=== PATIENT | female | born 1955 | race Caucasian/White ===

== ENCOUNTER 2019-11-29 17:00 | Inpatient (IN) | payer MEDICARE, OTHER ==
--- NOTE | 2019-11-29 17:26 | ER Document Report ---
ED Medical Screen (RME) - General Chief Complaint: Abnormal Lab Results Stated Complaint: ABNORMAL LABS Time Seen by Provider: 11/29/19 17:18 Primary Care Provider: KAYLA DOMINGUEZ MD [Primary Care Provider] - Follow up as needed Mode of Arrival: Wheelchair Information source: Patient Notes: 64-year-old female presented to ED for abnormal lab. She states she was getting a procedure done to try to remove kidney stones at [place] and they were doing a follow-up visit on Monday when they velma blood. She states they called her and told her to come to the emergency room immediately because her sodium was extremely low. She states they cannot get foggy yesterday and today. She states she has had very low sodium in the past and they had to treated with salt tablets and sodium chloride. She states she does have history of paraplegia damage to the nerves around the teeth 3 and kidney stones. She states she does have a urostomy she has no gallbladder and no urinary bladder. She states she only has 1 kidney because the other kidney after a botched surgery. I have greeted and performed a rapid initial assessment of this patient. A comprehensive ED assessment and evaluation of the patient, analysis of test results and completion of medical decision making process will be conducted by an additional ED providers. - Related Data Allergies/Adverse Reactions: adhesive tape [Adhesive Tape] Allergy (Unknown, Verified 03/16/12 18:30) latex [Latex] Allergy (Unknown, Verified 03/16/12 18:30) Past Medical History Renal/ Medical History: Reports: Hx Kidney Stones Musculoskeltal Medical History: Reports Hx Musculoskeletal Trauma Traumatic Medical History: Reports: Hx Spine Fracture - T-3 Past Surgical History: Reports: Hx Cholecystectomy, Hx Orthopedic Surgery - SPINE, Hx Urinary Tract Surgery - urostomy, only has one kidney L nephrectomy, Hx Urostomy. Denies: Hx Pacemaker - Immunizations Hx Diphtheria, Pertussis, Tetanus Vaccination: Yes Physical Exam - Vital signs Vitals: Temp Pulse Resp BP Pulse Ox 98.5 F 88 18 92/57 L 97 11/29/19 17:06 11/29/19 17:06 11/29/19 17:06 11/29/19 17:06 11/29/19 17:06 Course - Vital Signs Vital signs: Temp Pulse Resp BP Pulse Ox 98.5 F 88 18 92/57 L 97 11/29/19 17:19 11/29/19 17:06 11/29/19 17:06 11/29/19 17:06 11/29/19 17:06 Doctor's Discharge - Discharge Referrals: KAYLA DOMINGUEZ MD [Primary Care Provider] - Follow up as needed
[2019-11-29 18:05] LABS: ABSOLUTE EOSINOPHILS # (AUTO) 0.1 10^3/uL (0.0-0.6); ABSOLUTE MONOCYTES (AUTO) 0.6 10^3/uL (0.1-1.4); ABSOLUTE NEUT (AUTO) 2.6 10^3/uL (1.7-8.2); BASOPHILS % (AUTO) 0.9 % (0-2); EOSINOPHILS % (AUTO) 3.1 % (0-6); HEMATOCRIT 33.9 % (36.0-47.0); HEMOGLOBIN 11.5 g/dL (12.0-15.5); MEAN CORPUSCULAR HEMOGLOBIN 31.8 pg (27.0-33.4); MEAN CORPUSCULAR VOLUME 94 fl (80-97); MONOCYTES % (AUTO) 13.6 % (3-13); PLATELET COUNT 417 10^3/uL (150-450); RED BLOOD COUNT 3.62 10^6/uL (3.72-5.28); RED CELL DISTRIBUTION WIDTH 14.1 % (11.5-14.0); SEGMENTED NEUTROPHILS % (AUTO) 59.4 % (42-78); TOTAL CELLS COUNTED % (AUTO) 100 %; WHITE BLOOD COUNT 4.3 10^3/uL (4.0-10.5)
[2019-11-29 18:18] LABS: AMORPHOUS SEDIMENT,URINE TRACE /HPF; APPEARANCE,URINE SLIGHTLY-CLOUDY; BILIRUBIN,URINE NEGATIVE (NEGATIVE); COLOR,URINE YELLOW; GLUCOSE, URINE NEGATIVE (NEGATIVE); KETONES,URINE NEGATIVE (NEGATIVE); LEUKOCYTE ESTERASE,URINE LARGE (NEGATIVE); NITRITE,URINE NEGATIVE (NEGATIVE); PROTEIN,URINE NEGATIVE (NEGATIVE); URINE SPECIFIC GRAVITY 1.004
[2019-11-29 18:26] LABS: ALBUMIN 3.1 g/dL (3.5-5.0); ALKALINE PHOSPHATASE 197 U/L (38-126); ANION GAP 8 (5-19); ASPARTATE AMINO TRANSFERASE 15 U/L (14-36); BILIRUBIN,DIRECT 0.3 mg/dL (0.0-0.4); BILIRUBIN,TOTAL 0.5 mg/dL (0.2-1.3); BLOOD UREA NITROGEN 6 mg/dL (7-20); CALCIUM 8.6 mg/dL (8.4-10.2); CARBON DIOXIDE 25 mmol/L (22-30); CHLORIDE 89 mmol/L (98-107); GLUCOSE 96 mg/dL (75-110); POTASSIUM 4.6 mmol/L (3.6-5.0); TOTAL PROTEIN 5.6 g/dL (6.3-8.2)
[2019-11-29] MEDS: NORMAL SALINE 1000 ML 1,000 ML IV PRN (20:42)
--- NOTE | 2019-11-29 21:22 | ER Document Report ---
ED General - General Chief Complaint: Abnormal Lab Results Stated Complaint: ABNORMAL LABS Time Seen by Provider: 11/29/19 17:18 Mode of Arrival: Wheelchair Notes: Patient is a 64-year-old female that comes emergency department for chief complaint of abnormal labs. Patient states that she had a follow-up appointment after she had kidney stone removal at [place], she states that she was called and told that her labs drawn on Monday showed a very low sodium. She states that she has been told to drink 2 to 3 L of fluid daily because of her kidney history, she states she has had hyponatremia twice in the past she has not on salt tablets at home. She is not on a diuretic. Past medical history includes cystectomy with urostomy, left nephrectomy, and kidney stones current smoking, COPD. Patient denies any complaints, denies confusion, pain, vomiting, fever. states she has been acting normally. - Related Data Allergies/Adverse Reactions: adhesive tape [Adhesive Tape] Allergy (Unknown, Verified 03/16/12 18:30) latex [Latex] Allergy (Unknown, Verified 03/16/12 18:30) Past Medical History - General Information source: Patient - Social History Smoking Status: Current Every Day Smoker Frequency of alcohol use: None Drug Abuse: None Lives with: Family Family History: Reviewed & Not Pertinent Renal/ Medical History: Reports: Hx Kidney Stones Musculoskeletal Medical History: Reports Hx Musculoskeletal Trauma Traumatic Medical History: Reports: Hx Spine Fracture - T-3 Past Surgical History: Reports: Hx Cholecystectomy, Hx Orthopedic Surgery - SPINE, Hx Urinary Tract Surgery - urostomy, only has one kidney L nephrectomy, Hx Urostomy. Denies: Hx Pacemaker - Immunizations Hx Diphtheria, Pertussis, Tetanus Vaccination: Yes Hx Pneumococcal Vaccination: 02/14/08 Review of Systems - Review of Systems Constitutional: No symptoms reported EENT: No symptoms reported Cardiovascular: No symptoms reported Respiratory: No symptoms reported Gastrointestinal: No symptoms reported Genitourinary: No symptoms reported Female Genitourinary: No symptoms reported Musculoskeletal: No symptoms reported Skin: No symptoms reported Hematologic/Lymphatic: No symptoms reported Neurological/Psychological: No symptoms reported Physical Exam - Vital signs Vitals: Temp Pulse Resp BP Pulse Ox 98.5 F 88 18 92/57 L 97 11/29/19 17:06 11/29/19 17:06 11/29/19 17:06 11/29/19 17:06 11/29/19 17:06 - Notes Notes: GENERAL: Alert, interacts well. No acute distress. HEAD: Normocephalic, atraumatic. EYES: Pupils equal, round, and reactive to light. Extraocular movements intact. ENT: Oral mucosa moist, tongue midline. Oropharynx unremarkable. Airway patent. NECK: Full range of motion. Supple. Trachea midline. No lymphadenopathy. LUNGS: Decreased breath sounds bilaterally but no overt wheezes, rales, or rhonchi. No respiratory distress. HEART: Regular rate and rhythm. No murmur ABDOMEN: Urostomy bag noted in the right lower abdomen with unremarkable appearing urine. Soft nontender abdomen. Otherwise unremarkable. EXTREMITIES: Moves all 4 extremities spontaneously. No edema, normal radial and dorsalis pedis pulses bilaterally. No cyanosis. BACK: no cervical, thoracic, lumbar midline tenderness. No saddle anesthesia, normal distal neurovascular exam. Moves all extremities in full range of motion. NEUROLOGICAL: Alert and oriented x3. Normal speech. Cranial nerves II through XII grossly intact. Strength 5/5 in all extremities. PSYCH: Normal affect, normal mood. SKIN: Warm, dry, normal turgor. No rashes or lesions noted. Course - Re-evaluation Re-evalutation: Patient appears older than her stated age she is asymptomatic, cooperative, otherwise well-appearing. Initial blood pressure borderline low at 97, this was recycled and is unremarkable. Remaining evaluation is unremarkable. Patient has no confusion, neurological exam is unremarkable. CBC nonspecific, chemistry shows significant hyponatremia at 121.5, remaining chemistry unremarkable. Urinalysis shows some white blood cells and leukocyte esterase but this was taken from her urostomy bag and I feel this is nonspecific. Culture was placed. Patient has been started on slow sodium chloride fluid rate for treatment of hyponatremia. Discussed with patient and , I suspect her hyponatremia secondary to volume overload with persistent hydration for her kidneys. Will discuss with hospitalist for admission. They state understanding and agreement. Discussed with Dr. Browning, hospitalist, patient accepted to medical floor full admission. - Vital Signs Vital signs: Temp Pulse Resp BP Pulse Ox 98.3 F 88 16 107/59 L 97 11/30/19 01:07 11/30/19 02:01 11/30/19 02:01 11/30/19 01:07 11/30/19 02:01 - Laboratory Result Diagrams: 11/29/19 17:45 11/29/19 17:45 Laboratory results interpreted by me: 11/29/19 11/29/19 11/29/19 17:45 17:45 17:45 RBC 3.62 L Hgb 11.5 L Hct 33.9 L RDW 14.1 H [place] % (Auto) 13.6 H Sodium 121.5 L Chloride 89 L BUN 6 L Creatinine 0.50 L Alkaline Phosphatase 197 H Total Protein 5.6 L Albumin 3.1 L Urine Urobilinogen 4.0 H Ur Leukocyte Esterase LARGE H Discharge - Discharge Clinical Impression: Hyponatremia Condition: Stable Disposition: ADMITTED INPATIENT Admitting Provider: Nallely (Hospitalist) Unit Admitted: Medical Floor
[2019-11-29] MEDS ORDERED: LORAZEPAM INJ 2 MG/1 ML VIAL IV PRN (23:53)
[2019-11-29] MEDS ORDERED: MAG HYDROX/AL HYDROX/SIMETH SUSP 30 ML UDCUP PO PRN (23:53)
[2019-11-29] MEDS ORDERED: NICOTINE 21 MG/24 HR PATCH.TD24 TD PRN (23:53)
[2019-11-29] MEDS ORDERED: MAGNESIUM HYDROXIDE SUSP 30 ML UDCUP PO PRN (23:53)
[2019-11-29] MEDS ORDERED: MORPHINE SULFATE 10 MG/ML INJ IV PRN (23:53)
[2019-11-29] MEDS ORDERED: MELATONIN 5 MG TABLET PO PRN (23:53)
[2019-11-29] MEDS ORDERED: GUAIFENESIN SYRP 200 MG/10 ML UDC PO PRN (23:53)
[2019-11-29] MEDS ORDERED: LEVALBUTEROL HCL NEB 0.63 MG/3 ML AMPUL NEB PRN (23:53)
[2019-11-29] MEDS ORDERED: ACETAMINOPHEN 325 MG TABLET PO PRN (23:53)
--- NOTE | 2019-11-30 00:22 | PDOC H&P ---
History of Present Illness Admission Date/PCP: 11/29/19 23:15 KAYLA DOMINGUEZ MD Patient complains of: Hyponatremia History of Present Illness: DILCIA CASTRO is a 64 year old female who presents to the emergency room at the direction of her [facility] urologist's office due to a low sodium on lab work taken on 11/28/2019. She denies any symptoms or signs of hyponatremia and has been feeling well. She recently had nephrolithiasis treated at [facility] and was seen in for her post procedure follow-up appointment yesterday. She admits a prior history of similar episodes of hyponatremia which were treated with salt tablets. She denies use of any diuretic medications and has been drinking 2 to 3 L of water per day as instructed by her urologist to aid in controlling her nephrolithiasis. In the emergency room she was found to have a sodium of 121 and initial therapy with normal saline was given. She was subsequently admitted hospital for further evaluation treatment. 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 Denies: Hemorrhagic CVA, Ischemic CVA, Seizures Endocrine Medical History: Denies: Diabetes Mellitus Type 1, Diabetes Mellitus Type 2, Hyperthyroidism, Hypothyroidism, Obesity Renal/ Medical History: Reports: Nephrolithiasis, Other - Status post left nephrectomy and cystectomy with urostomy Denies: Chronic Kidney Disease Malignancy Medical History: Reports: None GI Medical History: Denies: Cirrhosis, Hepatitis, Peptic Ulcer Disease Musculoskeltal Medical History: Denies: Arthritis, Fibromyalgia Skin Medical History: Denies: Eczema, Psoriasis Psychiatric Medical History: Reports: Tobacco Dependency Denies: Alcohol Dependency, Substance Abuse Traumatic Medical History: Reports: Other - Thoracic spinal injury Hematology: Reports: Anemia Denies: Bleeding Tendencies Infectious Medical History: Reports: None Past Surgical History Past Surgical History: Reports: Cholecystectomy, Orthopedic Surgery - Spinal surgery, Other - Cystectomy, L nephrectomy, urostomy, cystoscopies and nephrolith therpaies Social History Information Source: Patient Lives with: Spouse/Significant other Smoking Status: Current Every Day Smoker Electronic Cigarette use?: No Frequency of Alcohol Use: None Hx Recreational Drug Use: No Drugs: None Hx Prescription Drug Abuse: No - Advance Directive Resuscitation Status: Full Code Surrogate healthcare decision maker:: Jermaine Castro Family History Family History: Malignancy. denies: CAD, DM, Hypertension, Other - Nephrolit hiasis Parental Family History Reviewed: Yes Children Family History Reviewed: No Sibling(s) Family History Reviewed.: No Medication/Allergy Home Medications: Baclofen [Baclofen 20 mg Tablet] 20 mg PO TID 03/16/12 Amitrip HCl/Chlordiazepoxide [Limbitrol Tablet] 1 each PO TID #0 tablet 03/19/12 Cyanocobalamin (Vitamin B-12) [B-12] 1,000 mcg IM [id number] #0 tab.subl 03/19/12 Ciprofloxacin HCl [Proquin Xr] 500 mg PO BID #60 tab.sr.24h 03/28/12 Allergies/Adverse Reactions: adhesive tape [Adhesive Tape] Allergy (Unknown, Verified 03/16/12 18:30) latex [Latex] Allergy (Unknown, Verified 03/16/12 18:30) Review of Systems Constitutional: ABSENT: chills, fever(s) Eyes: ABSENT: visual disturbances, other - Eye pain Ears: ABSENT: hearing changes, other - Ear pain Nose, Mouth, and Throat: ABSENT: headache(s), sore throat Cardiovascular: ABSENT: chest pain, palpitations Respiratory: ABSENT: cough, dyspnea Gastrointestinal: ABSENT: constipation, diarrhea, nausea, vomiting Musculoskeletal: ABSENT: joint swelling, muscle weakness Integumentary: ABSENT: pruritus, rash Neurological: PRESENT: other - Chronic paraplegia. ABSENT: confusion, convulsions, memory loss, syncope Psychiatric: ABSENT: anxiety, depression Endocrine: ABSENT: cold intolerance, heat intolerance Hematologic/Lymphatic: ABSENT: easy bleeding, easy bruising Allergic/Immunologic: ABSENT: seasonal rhinorrhea Physical Exam Vital Signs: Temp Pulse Resp BP Pulse Ox 98.5 F 88 19 92/67 L 95 11/29/19 17:19 11/29/19 17:06 11/29/19 22:00 11/29/19 21:30 11/29/19 22:00 General appearance: PRESENT: no acute distress, cooperative Head exam: PRESENT: atraumatic, normocephalic Eye exam: PRESENT: conjunctiva pink. ABSENT: conjunctival injection, scleral icterus Ear exam: PRESENT: normal external ear exam. ABSENT: bleeding, drainage Mouth exam: PRESENT: dry mucosa, neck supple Neck exam: ABSENT: thyromegaly, tracheal deviation Respiratory exam: PRESENT: clear to auscultation jared, symmetrical, unlabored Cardiovascular exam: PRESENT: RRR. ABSENT: clicks, gallop, rubs Pulses: PRESENT: normal carotid pulses, normal radial pulses Vascular exam: PRESENT: normal capillary refill. ABSENT: pallor GI/Abdominal exam: PRESENT: normal bowel sounds, soft Rectal exam: PRESENT: deferred Extremities exam: ABSENT: joint swelling, pedal edema Musculoskeletal exam: PRESENT: other - Paraplegia noted. ABSENT: dislocation Neurological exam: PRESENT: alert, oriented to person, oriented to place, oriented to time, oriented to situation, CN II-XII grossly intact, motor sensory deficit - Paraplegia with anesthesia at T4 level Psychiatric exam: PRESENT: appropriate affect, normal mood Skin exam: PRESENT: dry, intact, warm. ABSENT: jaundice, rash, urticaria Results Laboratory Results: 11/29/19 17:45 11/29/19 17:45 11/29/19 11/29/19 11/29/19 17:45 17:45 17:45 WBC 4.3 RBC 3.62 L Hgb 11.5 L Hct 33.9 L MCV 94 MCH 31.8 MCHC 34.0 RDW 14.1 H Plt Count 417 Seg Neutrophils % 59.4 Sodium 121.5 L Potassium 4.6 Chloride 89 L Carbon Dioxide 25 Anion Gap 8 BUN 6 L Creatinine 0.50 L Est GFR ( Amer) > 60 Glucose 96 Calcium 8.6 Phosphorus 3.0 Magnesium 2.0 Total Bilirubin 0.5 AST 15 Alkaline Phosphatase 197 H Total Protein 5.6 L Albumin 3.1 L Urine Color YELLOW Urine Appearance SLIGHTLY-CLOUDY Urine pH 8.0 Ur Specific [place] 1.004 Urine Protein NEGATIVE Urine Glucose (UA) NEGATIVE Urine Ketones NEGATIVE Urine Blood NEGATIVE Urine Nitrite NEGATIVE Ur Leukocyte Esterase LARGE H Urine WBC (Auto) 5 Urine RBC (Auto) 2 Assessment and Plan - Diagnosis (1) Hyponatremia Is this a current diagnosis for this admission?: Yes (2) Nephrolithiasis Is this a current diagnosis for this admission?: Yes (3) Chronic obstructive pulmonary disease Qualifiers: COPD type: unspecified COPD Qualified Code(s): J44.9 - Chronic obstructive pulmonary disease, unspecified Is this a current diagnosis for this admission?: Yes (4) Paraplegia at T4 level Is this a current diagnosis for this admission?: Yes (5) Tobacco use disorder, continuous Is this a current diagnosis for this admission?: Yes - Plan Summary Summary: Patient will be admitted to the medical floor where she will receive routine supportive and symptomatic cares. She will be treated with IV normal saline at 167 mL/h. Serial metabolic profiles will be obtained to evaluate treatment with repletion of sodium. She will also be given sodium bicarbonate 1300 mg p.o. 4 times daily with meals and at bedtime. Smoking cessation is advised and counseled briefly at the bedside. A nicotine replacement patch is available for the patient's use if desired. Patient will be continued on her usual home medications as appropriate once her medication list has been verified and reconciled. She will use Ativan 1 mg IV every 4 hours as needed for anxiety or restlessness. - Time Time Spent with patient: 15-24 minutes Smoking Cessation Education: 3 to 10 minutes Medications reviewed and adjusted accordingly: Yes Anticipated Discharge Disposition: Home, Self Care Anticipated Discharge Timeframe: within 72 hours - Inpatient Certification Based on my medical assessment, after consideration of the patient's comorbidities, presenting symptoms, or acuity I expect that the services needed warrant INPATIENT care.: Yes I certify that my determination is in accordance with my understanding of Medicare's requirements for reasonable and necessary INPATIENT services [42 CFR 412.3e].: Yes Medical Necessity: Need Close Monitoring Due to Risk of Patient Decompensation, Need For IV Fluids, Risk of Complication if Not Cared For in Hospital
[2019-11-30] MEDS ORDERED: ONDANSETRON HCL INJ/PF 4 MG/2 ML SDV IV PRN (00:23)
[2019-11-30] MEDS ORDERED: MORPHINE SULFATE 10 MG/ML INJ IV PRN ×3 (00:27→00:28)
[2019-11-30] MEDS: NORMAL SALINE 1000 ML 1,000 ML IV PRN ×3 (01:31→22:09)
[2019-11-30] MEDS: LEVALBUTEROL HCL NEB 1.25 MG/3 ML AMPUL NEB SCH ×4 (02:01→23:33)
[2019-11-30 05:08] LABS: HEMATOCRIT 33.4 % (36.0-47.0); HEMOGLOBIN 11.6 g/dL (12.0-15.5); MEAN CORPUSCULAR HEMOGLOBIN 32.4 pg (27.0-33.4); MEAN CORPUSCULAR HGB CONC 34.8 g/dL (32.0-36.0); MEAN CORPUSCULAR VOLUME 93 fl (80-97); PLATELET COUNT 431 10^3/uL (150-450); RED BLOOD COUNT 3.58 10^6/uL (3.72-5.28); WHITE BLOOD COUNT 3.6 10^3/uL (4.0-10.5)
[2019-11-30] MEDS: HEPARIN SOD (PORCINE) 5,000 UNIT/ML 1 ML VIAL SUBCUT SCH ×3 (05:10→22:03)
[2019-11-30 05:28] LABS: ANION GAP 7 (5-19); BLOOD UREA NITROGEN 5 mg/dL (7-20); CALCIUM 8.5 mg/dL (8.4-10.2); CARBON DIOXIDE 24 mmol/L (22-30); CHLORIDE 96 mmol/L (98-107); GLUCOSE 97 mg/dL (75-110); POTASSIUM 4.3 mmol/L (3.6-5.0)
[2019-11-30] MEDS: FAMOTIDINE 20 MG TABLET PO SCH ×2 (10:08→22:03)
[2019-11-30] MEDS: DOCUSATE SODIUM 100 MG CAPSULE PO SCH ×2 (10:09→18:23)
[2019-11-30] MEDS: SODIUM BICARBONATE 650 MG TABLET PO SCH ×4 (10:11→22:03)
--- NOTE | 2019-11-30 17:31 | PDOC PROGRESS REPORT ---
Subjective Progress Note for:: 11/30/19 Subjective:: No adverse events overnight. No new complaints. She says she is feeling better. Her appetite is starting to improve. She has had good urine output. Reason For Visit: HYPONATREMIA Physical Exam Vital Signs: Temp Pulse Resp BP Pulse Ox 98.5 F 85 16 113/69 98 11/30/19 15:22 11/30/19 15:22 11/30/19 15:22 11/30/19 15:22 11/30/19 15:22 Intake & Output 11/29/19 11/30/19 12/01/19 06:59 06:59 06:59 Intake Total 1000 360 Output Total 0 900 Balance 1000 -540 General appearance: PRESENT: no acute distress, cooperative, disheveled Respiratory exam: PRESENT: clear to auscultation jared, symmetrical, unlabored. ABSENT: accessory muscle use, chest wall tenderness, crackles, prolonged expiratory phas, rhonchi, tachypnea, wheezes Cardiovascular exam: PRESENT: RRR, +S1, +S2 Pulses: PRESENT: normal carotid pulses Vascular exam: PRESENT: normal capillary refill GI/Abdominal exam: PRESENT: normal bowel sounds, soft, other - Urostomy right lower quadrant. ABSENT: distended, guarding, rebound, tenderness Extremities exam: ABSENT: pedal edema Neurological exam: PRESENT: alert, awake, oriented to person, oriented to place, oriented to situation Psychiatric exam: PRESENT: appropriate affect, normal mood Skin exam: PRESENT: dry, warm Results Laboratory Results: 11/30/19 04:30 11/30/19 04:30 11/29/19 11/29/19 11/29/19 17:45 17:45 17:45 WBC 4.3 RBC 3.62 L Hgb 11.5 L Hct 33.9 L MCV 94 MCH 31.8 MCHC 34.0 RDW 14.1 H Plt Count 417 Seg Neutrophils % 59.4 Sodium 121.5 L Potassium 4.6 Chloride 89 L Carbon Dioxide 25 Anion Gap 8 BUN 6 L Creatinine 0.50 L Est GFR ( Amer) > 60 Glucose 96 Calcium 8.6 Phosphorus 3.0 Magnesium 2.0 Total Bilirubin 0.5 AST 15 Alkaline Phosphatase 197 H Total Protein 5.6 L Albumin 3.1 L Urine Color YELLOW Urine Appearance SLIGHTLY-CLOUDY Urine pH 8.0 Ur Specific [place] 1.004 Urine Protein NEGATIVE Urine Glucose (UA) NEGATIVE Urine Ketones NEGATIVE Urine Blood NEGATIVE Urine Nitrite NEGATIVE Ur Leukocyte Esterase LARGE H Urine WBC (Auto) 5 Urine RBC (Auto) 2 11/30/19 11/30/19 04:30 04:30 WBC 3.6 L RBC 3.58 L Hgb 11.6 L Hct 33.4 L MCV 93 MCH 32.4 MCHC 34.8 RDW 14.0 Plt Count 431 Seg Neutrophils % Sodium 126.9 L Potassium 4.3 Chloride 96 L Carbon Dioxide 24 Anion Gap 7 BUN 5 L Creatinine 0.49 L Est GFR ( Amer) > 60 Glucose 97 Calcium 8.5 Phosphorus Magnesium 2.1 Total Bilirubin AST Alkaline Phosphatase Total Protein Albumin Urine Color Urine Appearance Urine pH Ur Specific [place] Urine Protein Urine Glucose (UA) Urine Ketones Urine Blood Urine Nitrite Ur Leukocyte Esterase Urine WBC (Auto) Urine RBC (Auto) Assessment and Plan - Diagnosis (1) Hyponatremia Is this a current diagnosis for this admission?: Yes (2) Paraplegia at T4 level Is this a current diagnosis for this admission?: Yes (3) Chronic obstructive pulmonary disease Qualifiers: COPD type: unspecified COPD Qualified Code(s): J44.9 - Chronic obstructive pulmonary disease, unspecified Is this a current diagnosis for this admission?: Yes (4) Tobacco use disorder, continuous Is this a current diagnosis for this admission?: Yes - Plan Summary Summary: We will cut down her IV fluids because her sodium is trending up a little faster than I would like for it to. We will continue to monitor her electrolytes and urine output. - Time Time Spent with patient: 15-24 minutes Anticipated Discharge Disposition: Home with Home Health Anticipated Discharge Timeframe: within 72 hours
[2019-11-30] MEDS ORDERED: ALBUTEROL SULFATE HFA (90 MCG/PUFF) 8 GM MDI (1 MDI/ER DISP) IH PRN (18:29)
[2019-11-30] MEDS ORDERED: BACLOFEN 20 MG TABLET ONE (19:08)
[2019-11-30] MEDS: DIPHENOXYLATE HCL/ATROP SULF 2.5-0.025 MG TABLET PO PRN (19:11)
[2019-11-30] MEDS: BACLOFEN 20 MG TABLET PO PRN (19:18)
[2019-11-30] MEDS ORDERED: ALBUTEROL SULFATE HFA (90 MCG/PUFF) 8 GM MDI IH ONE (19:42)
[2019-11-30] MEDS: AMITRIPTYLINE HCL 25 MG TABLET PO SCH (22:02)
[2019-11-30] MEDS: DIAZEPAM 5 MG TABLET PO SCH (22:02)
[2019-12-01] MEDS: NORMAL SALINE 1000 ML 1,000 ML IV PRN (04:30)
[2019-12-01 05:16] LABS: ANION GAP 7 (5-19); BLOOD UREA NITROGEN 8 mg/dL (7-20); CALCIUM 8.5 mg/dL (8.4-10.2); CARBON DIOXIDE 24 mmol/L (22-30); CHLORIDE 106 mmol/L (98-107); GLUCOSE 87 mg/dL (75-110); POTASSIUM 4.3 mmol/L (3.6-5.0)
[2019-12-01] MEDS: BACLOFEN 20 MG TABLET PO PRN ×2 (05:40→14:31)
[2019-12-01] MEDS: HEPARIN SOD (PORCINE) 5,000 UNIT/ML 1 ML VIAL SUBCUT SCH ×3 (05:40→22:44)
[2019-12-01] MEDS: LEVALBUTEROL HCL NEB 1.25 MG/3 ML AMPUL NEB SCH ×3 (07:43→23:38)
[2019-12-01] MEDS ORDERED: INFLUENZA QUAD (6MOS+) 2020-21 VAC 0.5 ML SYR IM ONE (08:00)
[2019-12-01] MEDS ORDERED: ALBUTEROL SULFATE HFA (90 MCG/PUFF) 8 GM MDI IH PRN (08:15)
[2019-12-01] MEDS: CYANOCOBALAMIN (VITAMIN B-12) 1,000 MCG TABLET PO SCH (09:32)
[2019-12-01] MEDS: DIPHENOXYLATE HCL/ATROP SULF 2.5-0.025 MG TABLET PO PRN ×2 (09:34→13:36)
[2019-12-01] MEDS: DIAZEPAM 5 MG TABLET PO SCH ×2 (09:34→22:45)
[2019-12-01] MEDS: AMITRIPTYLINE HCL 25 MG TABLET PO SCH ×2 (09:34→22:44)
[2019-12-01] MEDS: FAMOTIDINE 20 MG TABLET PO SCH ×2 (09:34→22:44)
[2019-12-01] MEDS: DOCUSATE SODIUM 100 MG CAPSULE PO SCH ×2 (10:08→17:21)
[2019-12-01] MEDS: DEXTROSE 5%-WATER 1000 ML 1,000 ML IV PRN ×2 (10:10→21:09)
--- NOTE | 2019-12-01 13:45 | PDOC PROGRESS REPORT ---
Subjective Progress Note for:: 12/01/19 Subjective:: Her sodium came up a little bit more than what we would like to see get it for 48-hour teresita. We still have several hours to go before she actually has the 48- hour teresita, so I switched her over to some D5W. She is not having any mental status changes. In fact, she wants to leave the hospital. She says that typically they get her sodium back up to normal quickly and she goes home. I told her I was worried about possible neurological consequences of her sodium c oming up too quickly, and she said she usually has some symptoms at home for couple of days but then she starts to feel normal again. Reason For Visit: HYPONATREMIA Physical Exam Vital Signs: Temp Pulse Resp BP Pulse Ox 97.5 F 71 18 122/73 98 12/01/19 07:53 12/01/19 07:53 12/01/19 07:53 12/01/19 07:53 12/01/19 07:53 Intake & Output 11/30/19 12/01/19 12/02/19 06:59 06:59 06:59 Intake Total 1000 3840 240 Output Total 0 1200 Balance 1000 2640 240 General appearance: PRESENT: no acute distress, cooperative, disheveled Respiratory exam: PRESENT: clear to auscultation jared, symmetrical, unlabored. ABSENT: accessory muscle use, chest wall tenderness, crackles, prolonged expiratory phas, rhonchi, tachypnea, wheezes Cardiovascular exam: PRESENT: RRR, +S1, +S2 Pulses: PRESENT: normal carotid pulses Vascular exam: PRESENT: normal capillary refill GI/Abdominal exam: PRESENT: normal bowel sounds, soft, other - Urostomy right lower quadrant. ABSENT: distended, guarding, rebound, tenderness Extremities exam: ABSENT: pedal edema Neurological exam: PRESENT: alert, awake, oriented to person, oriented to place, oriented to situation Psychiatric exam: PRESENT: appropriate affect, normal mood Skin exam: PRESENT: dry, warm Results Laboratory Results: 11/30/19 04:30 12/01/19 04:08 12/01/19 04:08 Sodium 136.5 L Potassium 4.3 Chloride 106 Carbon Dioxide 24 Anion Gap 7 BUN 8 Creatinine 0.55 Est GFR ( Amer) > 60 Glucose 87 Calcium 8.5 Magnesium 2.2 Assessment and Plan - Diagnosis (1) Hyponatremia Is this a current diagnosis for this admission?: Yes (2) Paraplegia at T4 level Is this a current diagnosis for this admission?: Yes (3) Chronic obstructive pulmonary disease Qualifiers: COPD type: unspecified COPD Qualified Code(s): J44.9 - Chronic obstructive pulmonary disease, unspecified Is this a current diagnosis for this admission?: Yes (4) Tobacco use disorder, continuous Is this a current diagnosis for this admission?: Yes - Plan Summary Summary: She had been put on sodium bicarbonate and so this in addition to her IV fluids which I reduced yesterday because her sodium to go up. I put her on some D5W to try to bring it back down. I am going to repeat a metabolic panel this afternoon at 1700 hrs. If her sodium is back down just a little bit and she is having no neurological symptoms, she can probably go home at that time, which is what she really wants to do. - Time Time Spent with patient: 15-24 minutes Anticipated Discharge Disposition: Home with Home Health Anticipated Discharge Timeframe: within 24 hours
[2019-12-01 17:17] LABS: ANION GAP 5 (5-19); BLOOD UREA NITROGEN 9 mg/dL (7-20); CALCIUM 8.5 mg/dL (8.4-10.2); CARBON DIOXIDE 25 mmol/L (22-30); CHLORIDE 106 mmol/L (98-107); GLUCOSE 108 mg/dL (75-110); POTASSIUM 4.2 mmol/L (3.6-5.0)
[2019-12-02] MEDS: HEPARIN SOD (PORCINE) 5,000 UNIT/ML 1 ML VIAL SUBCUT SCH (05:30)
[2019-12-02] MEDS: DEXTROSE 5%-WATER 1000 ML 1,000 ML IV PRN (05:32)
[2019-12-02 07:01] LABS: ANION GAP 7 (5-19); BLOOD UREA NITROGEN 7 mg/dL (7-20); CALCIUM 8.8 mg/dL (8.4-10.2); CARBON DIOXIDE 23 mmol/L (22-30); CHLORIDE 101 mmol/L (98-107); GLUCOSE 104 mg/dL (75-110); POTASSIUM 4.4 mmol/L (3.6-5.0)
[2019-12-02] MEDS: LEVALBUTEROL HCL NEB 1.25 MG/3 ML AMPUL NEB SCH (08:07)
[2019-12-02] MEDS: DOCUSATE SODIUM 100 MG CAPSULE PO SCH (09:28)
[2019-12-02] MEDS: DIAZEPAM 5 MG TABLET PO SCH (09:33)
[2019-12-02] MEDS: AMITRIPTYLINE HCL 25 MG TABLET PO SCH (09:33)
[2019-12-02] MEDS: CYANOCOBALAMIN (VITAMIN B-12) 1,000 MCG TABLET PO SCH (09:34)
[2019-12-02] MEDS: FAMOTIDINE 20 MG TABLET PO SCH (09:34)
[2019-12-02 11:38] VITALS: BP 107/59
--- NOTE | 2019-12-02 13:34 | PDOC DISCHARGE SUMMARY ---
Impression - Admit/DC Date/PCP Admission Date/Primary Care Provider: 11/29/19 23:15 KAYLA DOMINGUEZ MD Discharge Date: 12/02/19 - Discharge Diagnosis (1) Hyponatremia Is this a current diagnosis for this admission?: Yes (2) Paraplegia at T4 level Is this a current diagnosis for this admission?: Yes (3) Chronic obstructive pulmonary disease Is this a current diagnosis for this admission?: Yes (4) Tobacco use disorder, continuous Is this a current diagnosis for this admission?: Yes - Assessment Summary: She had been put on sodium bicarbonate and so this in addition to her IV fluids which I reduced yesterday because her sodium to go up. I put her on some D5W to try to bring it back down. I am going to repeat a metabolic panel this afternoon at 1700 hrs. If her sodium is back down just a little bit and she is having no neurological symptoms, she can probably go home at that time, which is what she really wants to do. - Additional Information Resuscitation Status: Full Code Discharge Diet: Regular Discharge Activity: Activity As Tolerated Referrals: KAYLA DOMINGUEZ MD [Primary Care Provider] - 12/06/19 11:00 am Home Medications: Albuterol Sulfate [Albuterol Sulfate Hfa] 2 puff IH Q6HP PRN 11/30/19 Amitriptyline HCl [Elavil 25 mg Tablet] 25 mg PO DAILY 11/30/19 Amitriptyline HCl [Elavil 25 mg Tablet] 50 mg PO QHS 11/30/19 Baclofen [Baclofen 20 mg Tablet] 20 mg PO QIDP PRN 11/30/19 Cephalexin [Cephalexin 250 MG Tablet] 250 mg PO DAILY 11/30/19 Chlordiazepoxide HCl 10 mg PO DAILY 11/30/19 Chlordiazepoxide HCl 20 mg PO QHS 11/30/19 Cyanocobalamin (Vitamin B-12) [Vitamin B-12] 2,500 mcg SL DAILY 11/30/19 Diphenoxylate HCl/Atrop Sulf [Lomotil 2.5 mg Tablet] 1 tab PO BIDP PRN 11/30/19 History of Present Illiness History of Present Illness: DILCIA CASTRO is a 64 year old female who presents to the emergency room at the direction of her [place] urologist's office due to a low sodium on lab work taken on 11/28/2019. She denies any symptoms or signs of hyponatremia and has been feeling well. She recently had nephrolithiasis treated at [facility] and was seen in for her post procedure follow-up appointment yesterday. She admits a prior history of similar episodes of hyponatremia which were treated with salt tablets. She denies use of any diuretic medications and has been drinking 2 to 3 L of water per day as instructed by her urologist to aid in controlling her nephrolithiasis. In the emergency room she was found to have a sodium of 121 and initial therapy with normal saline was given. She was subsequently admitted hospital for further evaluation treatment. Hospital Course Hospital Course: Apparently this has been an issue for her before and she has been hospitalized a couple times for it. She is not really on any medications that would affect her sodium to any appreciable degree, and her issues with her sodium in the past seem to have stemmed from the ID in her mind that she has to drink a lot of water every day for the sake of her kidneys. We gave her some fluid with some sodium in it and her sodium numbers trended up. At some point she also wound up getting put on sodium bicarbonate tablets somehow, and this caused her sodium to go up faster than I would have liked, so we stopped everything and put her on some D5W and her sodium came back down, and it helped us keep her in a more acceptable range of the sodium increase over 48-hour timeframe. She has had no changes in her mental status. I told her that she does not have to necessarily drink a fixed amount of water each day, as long as her urine is a light yellow or yellow-tinged color. I think she was under the impression that her urine has to be the same color as the water she has been drinking. She seems to have a better understanding now of the idea of a water balance and says she will pay more attention to the color of her urine and less attention to how much water she is taking it on any given day. Her labs and examination were reassuring and she was discharged in stable condition. Physical Exam Vital Signs: Temp Pulse Resp BP Pulse Ox 98.6 F 72 16 107/59 L 98 12/02/19 11:33 12/02/19 11:33 12/02/19 11:33 12/02/19 11:33 12/02/19 11:33 Intake & Output 12/01/19 12/02/19 12/03/19 06:59 06:59 06:59 Intake Total 3840 3024 412 Output Total 1200 925 Balance 2640 8519 412 Weight 59 kg General appearance: PRESENT: no acute distress, cooperative, disheveled Respiratory exam: PRESENT: clear to auscultation jared, symmetrical, unlabored. ABSENT: accessory muscle use, chest wall tenderness, crackles, prolonged expiratory phas, rhonchi, tachypnea, wheezes Cardiovascular exam: PRESENT: RRR, +S1, +S2 Pulses: PRESENT: normal carotid pulses Vascular exam: PRESENT: normal capillary refill GI/Abdominal exam: PRESENT: normal bowel sounds, soft, other - Urostomy right lower quadrant. ABSENT: distended, guarding, rebound, tenderness Extremities exam: ABSENT: pedal edema Neurological exam: PRESENT: alert, awake, oriented to person, oriented to place, oriented to situation Psychiatric exam: PRESENT: appropriate affect, normal mood Skin exam: PRESENT: dry, warm Results Laboratory Results: WBC 3.6 10^3/uL (4.0-10.5) L 11/30/19 04:30 RBC 3.58 10^6/uL (3.72-5.28) L 11/30/19 04:30 Hgb 11.6 g/dL (12.0-15.5) L 11/30/19 04:30 Hct 33.4 % (36.0-47.0) L 11/30/19 04:30 MCV 93 fl (80-97) 11/30/19 04:30 MCH 32.4 pg (27.0-33.4) 11/30/19 04:30 MCHC 34.8 g/dL (32.0-36.0) 11/30/19 04:30 RDW 14.0 % (11.5-14.0) 11/30/19 04:30 Plt Count 431 10^3/uL (150-450) 11/30/19 04:30 Lymph % (Auto) 23.0 % (13-45) 11/29/19 17:45 Wilkin % (Auto) 13.6 % (3-13) H 11/29/19 17:45 Eos % (Auto) 3.1 % (0-6) 11/29/19 17:45 Baso % (Auto) 0.9 % (0-2) 11/29/19 17:45 Absolute Neuts (auto) 2.6 10^3/uL (1.7-8.2) 11/29/19 17:45 Absolute Lymphs (auto) 1.0 10^3/uL (0.5-4.7) 11/29/19 17:45 Absolute Monos (auto) 0.6 10^3/uL (0.1-1.4) 11/29/19 17:45 Absolute Eos (auto) 0.1 10^3/uL (0.0-0.6) 11/29/19 17:45 Absolute Basos (auto) 0.0 10^3/uL (0.0-0.2) 11/29/19 17:45 Seg Neutrophils % 59.4 % (42-78) 11/29/19 17:45 Sodium 131.3 mmol/L (137-145) L 12/02/19 05:21 Potassium 4.4 mmol/L (3.6-5.0) 12/02/19 05:21 Chloride 101 mmol/L (98-107) 12/02/19 05:21 Carbon Dioxide 23 mmol/L (22-30) 12/02/19 05:21 Anion Gap 7 (5-19) 12/02/19 05:21 BUN 7 mg/dL (7-20) 12/02/19 05:21 Creatinine 0.62 mg/dL (0.52-1.25) 12/02/19 05:21 Est GFR ( Amer) > 60 (>60) 12/02/19 05:21 Est GFR (MDRD) Non-Af > 60 (>60) 12/02/19 05:21 Glucose 104 mg/dL (75-110) 12/02/19 05:21 Calcium 8.8 mg/dL (8.4-10.2) 12/02/19 05:21 Phosphorus 3.0 mg/dL (2.5-4.5) 11/29/19 17:45 Magnesium 2.0 mg/dL (1.6-2.3) 12/02/19 05:21 Total Bilirubin 0.5 mg/dL (0.2-1.3) 11/29/19 17:45 Direct Bilirubin 0.3 mg/dL (0.0-0.4) 11/29/19 17:45 Neonat Total Bilirubin Not Reportable 11/29/19 17:45 Neonat Direct Bilirubin Not Reportable 11/29/19 17:45 Neonat Indirect Bili Not Reportable 11/29/19 17:45 AST 15 U/L (14-36) 11/29/19 17:45 ALT 8 U/L (<35) 11/29/19 17:45 Alkaline Phosphatase 197 U/L (38-126) H 11/29/19 17:45 Total Protein 5.6 g/dL (6.3-8.2) L 11/29/19 17:45 Albumin 3.1 g/dL (3.5-5.0) L 11/29/19 17:45 Urine Color YELLOW 11/29/19 17:45 Urine Appearance SLIGHTLY-CLOUDY 11/29/19 17:45 Urine pH 8.0 (5.0-9.0) 11/29/19 17:45 Ur Specific [place] 1.004 11/29/19 17:45 Urine Protein NEGATIVE mg/dL (NEGATIVE) 11/29/19 17:45 Urine Glucose (UA) NEGATIVE mg/dL (NEGATIVE) 11/29/19 17:45 Urine Ketones NEGATIVE mg/dL (NEGATIVE) 11/29/19 17:45 Urine Blood NEGATIVE (NEGATIVE) 11/29/19 17:45 Urine Nitrite NEGATIVE (NEGATIVE) 11/29/19 17:45 Urine Bilirubin NEGATIVE (NEGATIVE) 11/29/19 17:45 Urine Urobilinogen 4.0 mg/dL (<2.0) H 11/29/19 17:45 Ur Leukocyte Esterase LARGE (NEGATIVE) H 11/29/19 17:45 Urine WBC (Auto) 5 /HPF 11/29/19 17:45 Urine RBC (Auto) 2 /HPF 11/29/19 17:45 Urine Bacteria (Auto) TRACE /HPF 11/29/19 17:45 Squamous Epi Cells Auto <1 /HPF 11/29/19 17:45 Amorphous Sediment Auto TRACE /HPF 11/29/19 17:45 Urine Mucus (Auto) RARE /LPF 11/29/19 17:45 Urine Ascorbic Acid NEGATIVE (NEGATIVE) 11/29/19 17:45 Plan Time Spent: Greater than 30 Minutes Stroke Is this a Stroke Patient?: No Acute Heart Failure Is this a Heart Failure Patient?: No
== END 2019-12-02 12:47 | disposition home or self-care (01) | DRG 641 ==
LOC: ER 17:00 → EH 23:15 → 4N 11-30 01:05
PROVIDERS: ADMIT Emergency Medicine; ATTEND Family Medicine
DX: E87.1 Hypo-osmolality and hyponatremia (principal); G82.20 Paraplegia, unspecified; F17.200 Nicotine dependence, unspecified, uncomplicated; J44.9 Chronic obstructive pulmonary disease, unspecified; Z90.49 Acquired absence of other specified parts of digestive tract; Z87.442 Personal history of urinary calculi; Z93.6 Other artificial openings of urinary tract status; Z90.6 Acquired absence of other parts of urinary tract; Z90.5 Acquired absence of kidney; Z91.040 Latex allergy status; Z91.048 Other nonmedicinal substance allergy status; Z23 Encounter for immunization
CPT/HCPCS: 36415; 80048; 80053; 81001; 83735; 84100; 85025; 85027; 87086; 87088; 87186; 90471; 90686; 99285; G0008; J1644; J3490; J7030; J7060